=== PATIENT | male | born 1980 | race Caucasian/White ===

== ENCOUNTER 2016-12-20 10:08 | Emergency (ER) | payer BC, OTHER ==
[2016-12-20 10:59] VITALS: BP 121/70
--- NOTE | 2016-12-20 11:55 | RAD ---
INDICATION: Back injury. COMPARISON: There are no prior studies available for comparison. TECHNIQUE: AP and lateral films of the spine were obtained centered at the dorsal lumbar junction. FINDINGS: The vertebra are in normal alignment. No fracture is seen. Disc spaces appear maintained. IMPRESSION: NO EVIDENCE FOR FRACTURE.
--- NOTE | 2016-12-21 18:44 | UC ---
nerissa Mccullough Timothy, scribed for Tori Ferguson MD on 12/20/16 at 1122 . Back Pain HPI - HPI Summary HPI Summary: Aries Moore is a 36 yo male presenting to [facility] with 5/10 interscapular ache since 0730 this morning. Pt states he was lifting heavy concrete (75 lbs) and went to turn when he heard a "pop" in his back, and promptly fell to the ground in pain. He states he has been having pain since then, but denies any numbness or tingling. He took two ibuprofen S/P injury with some pain relief. He denies any pertinent MHx. - History of Current Complaint Chief Complaint: UCBackPain Stated Complaint: BACK INJURY Time Seen by Provider: 12/20/16 11:21 Hx Obtained From: Patient Onset/Duration: Sudden Onset, Lasting Hours, Still Present Timing: Constant, Lasting Hours Severity Initially: Moderate Severity Currently: Moderate Pain Intensity: 5 Pain Scale Used: 0-10 Numeric Back Pain: Is Discrete @ - thoracic, interscapular Character: Aching Aggravating: Movement Alleviating: Nothing Associated Signs And Symptoms: Negative: Weakness, Numbness Related History: Occupational Injury - but is self employed - Risk Factors AAA Risk Factors: Negative TAD Risk Factors: Negative Cauda Equina Risk Factors: Negative Epidural Abscess Risk Factors: Negative - Allergies/Home Medications Allergies/Adverse Reactions: Allergies Allergy/AdvReac Type Severity Reaction Status Date / Time No Known Allergies Allergy Verified 12/20/16 10:53 PMH/Surg Hx/FS Hx/Imm Hx Previously Healthy: Yes - Surgical History Surgical History: None - Family History Known Family History: Positive: Other - Alzheimer's; slipped disk in mother - Social History Occupation: Employed Full-time - self-employed Alcohol Use: Occasionally Substance Use Type: None Smoking Status (MU): Never Smoked Tobacco - Immunization History Most Recent Influenza Vaccination: Never Most Recent Tetanus Shot: 2012 Review of Systems Constitutional: Negative Skin: Negative Eyes: Negative ENT: Negative Respiratory: Negative Cardiovascular: Negative Gastrointestinal: Negative Genitourinary: Negative Motor: Negative Neurovascular: Negative Musculoskeletal: Arthralgia, Myalgia, Other: - mid-back pain Neurological: Negative Psychological: Negative All Other Systems Reviewed And Are Negative: Yes Physical Exam Triage Information Reviewed: Yes Appearance: Well-Appearing, Well-Nourished, Pain Distress - mild Vital Signs: Initial Vital Signs Temp 97.8 F 12/20/16 10:54 Pulse 50 12/20/16 10:54 Resp 18 12/20/16 10:54 BP 121/70 12/20/16 10:54 Pulse Ox 100 12/20/16 10:54 Vital Signs Reviewed: Yes Eyes: Positive: Conjunctiva Clear ENT: Positive: Hearing grossly normal. Negative: Muffled/hoarse voice Neck: Positive: Supple, Nontender Respiratory: Positive: Chest non-tender, Lungs clear, Normal breath sounds, No respiratory distress Cardiovascular: Positive: RRR, No Murmur, Pulses Normal, Brisk Capillary Refill Abdomen Description: Positive: Nontender, No Organomegaly, Soft. Negative: CVA Tenderness (R), CVA Tenderness (L), Distended, Guarding, McBurney's Point Tenderness, Peritoneal Signs, Pulsatile Mass Bowel Sounds: Positive: Present Musculoskeletal: Positive: Strength Intact, ROM Intact, Other: - interscapular tenderness, T8-10 tenderness to palpation Neurological: Positive: Alert, Muscle Tone Normal Psychological Exam: Normal Skin Exam: Normal Diagnostics - Radiology Thoracolumbar spine XR Xray Interpretation: No Acute Changes - IMPRESSION: NO EVIDENCE FOR FRACTURE. Radiology Interpretation Completed By: Radiologist Re-Evaluation - Re-Evaluation First Eval Re-Evaluation Time: 12:16 Change: Unchanged Comment: Pt is informed of the results of his imaging study, and agreeable to the current course of Tx. Back Pain Course/Dx - Course Course Of Treatment: Aries Moore is a 36 yo male presenting to [facility] with mid- back pain S/P hearing a "pop" while lifting. After negative thoracolumbar spine XR, he will be discharged home with thoracic strain and appropriate instructions. - Differential Dx/Diagnosis Differential Diagnosis/HQI/PQRI: Compressive Cord Syndrome, Herniated Disc, Strain, Sprain Provider Diagnoses: thoracic strain Discharge - Discharge Plan Condition: Stable Disposition: HOME Prescriptions: Cyclobenzaprine TAB* [Flexeril TAB*] 10 mg PO TID PRN #20 tab PRN Reason: Pain HYDROcodone/ACETAMIN 5-325 MG* [[place] 5-325 TAB*] 1 tab PO Q4H PRN #10 tab MDD 6 PRN Reason: Pain Patient Education Materials: Thoracic Back Strain (ED) Referrals: Huber Guajardo MD [Medical Doctor] - 2 Days Additional Instructions: Please follow up with the orthopedist provided regarding your visit to urgent care today. Return to urgent care or the emergency department with any new or recurring symptoms. The documentation as recorded by the nerissa benavides Timothy accurately reflects the service I personally performed and the decisions made by me, Tori Ferguson MD.
== END 2016-12-20 12:30 | disposition home or self-care (01) ==
LOC: UCEAST 10:08
DX: S29.012A Strain of muscle and tendon of back wall of thorax, initial encounter (principal); X50.0XXA Overexertion from strenuous movement or load, initial encounter; Y93.89 Activity, other specified; Y92.9 Unspecified place or not applicable; Y99.0 Civilian activity done for income or pay
CPT/HCPCS: 72080; 99202; G0463